=== PATIENT | male | born 1980 | race Caucasian/White ===

== ENCOUNTER 2016-10-20 10:05 | Emergency (ER) | payer SELFPAY ==
[~2016-10-20] VITALS: Ht 165.1 cm; Wt 81.6 kg
[2016-10-20 10:20] VITALS: BP 137/82
[2016-10-20] MEDS ORDERED: FAMOTIDINE 20 MG/2 ML VIAL IVP ONE (10:25)
[2016-10-20] MEDS ORDERED: NACL 0.9% 1,000 ML IV SCH (10:25)
[2016-10-20] MEDS ORDERED: KETOROLAC 30 MG/ML VIAL IVP ONE (10:25)
--- NOTE | 2016-10-20 10:36 | NUR ---
PATIENT PRESENTS TO ED WITH C/O MID CP SINCE AT 11PM 7/10 PRESSURE, NON RADIATING, denies any medical hx;SKIN IS PINK/WARM/DRY; AAOX4 WITH EVEN AND STEADY GAIT; LUNGS CLEAR BL; HR EVEN AND REGULAR; PT DENIES ANY FEVER,COUGH AT THIS TIME; PATIENT STATES PAIN OF /10 AT THIS TIME;PATIENT POSITIONED FOR COMFORT; HOB ELEVATED; BEDRAILS UP X2; BED DOWN.all monitors in placed.
[2016-10-20 10:56] LABS: BASOPHILS # (AUTO) 0.4 K/uL (0.00-0.22); BASOPHILS % (AUTO) 3.6 % (0.0-2.0); EOSINOPHILS # (AUTO) 0.2 K/uL (0-0.4); EOSINOPHILS % (AUTO) 1.3 % (0.0-4.0); HEMOGLOBIN 16.4 g/dL (12.0-18.0); LYMPHOCYTES # (AUTO) 2.6 K/uL (2.0-11.5); LYMPHOCYTES % (AUTO) 21.5 % (20.5-51.1); MEAN CORPUSCULAR HEMOGLOBIN 30 pg (27-31); MEAN CORPUSCULAR HGB CONC 34 g/dL (33-37); MEAN CORPUSCULAR VOLUME 90 fL (80-94); MONOCYTES # (AUTO) 0.8 K/uL (0.8-1.0); MONOCYTES % (AUTO) 6.9 % (1.7-9.3); NEUTROPHILS # (AUTO) 8.1 K/uL (1.8-7.7); NEUTROPHILS % (AUTO) 66.7 % (42.2-75.2); PLATELET COUNT (AUTO) 244 K/uL (140-450); RED BLOOD CELL COUNT(AUTO) 5.47 MIL/uL (4.20-6.10); RED CELL DISTRIBUTION WIDTH 12.2 % (11.6-13.7); WHITE BLOOD COUNT (AUTO) 12.1 K/uL (4.8-10.8)
[2016-10-20 11:00] LABS: ANION GAP 13.1 (8-16); CALCIUM 8.7 mg/dL (8.5-10.1); CARBON DIOXIDE 28.1 mmol/L (21-32); CREATININE 0.8 mg/dL (0.6-1.3); POTASSIUM 4.2 mmol/L (3.5-5.1)
[2016-10-20 11:06] LABS: TOTAL BILIRUBIN 0.6 mg/dL (0.0-1.0); TOTAL PROTEIN, SERUM 8.7 g/dL (6.4-8.2)
[2016-10-20 11:17] LABS: AMYLASE 51 U/L (25-115); LIPASE 106 U/L (73-393)
[2016-10-20 11:18] LABS: APPEARANCE,URINE CLEAR (CLEAR); BILIRUBIN,URINE NEGATIVE (NEGATIVE); BLOOD, URINE TRACE-I (NEGATIVE); COLOR,URINE YELLOW (YELLOW); LEUKOCYTE ESTERASE ,URINE NEGATIVE (NEGATIVE); NITRITE, URINE NEGATIVE (NEGATIVE); PROTEIN,URINE NEGATIVE (NEGATIVE); UGLUCOSE NEGATIVE (NEGATIVE); UROBILINOGEN,URINE 0.2 EU/dL (0.2 - 1)
[2016-10-20 11:23] LABS: PARTIAL THROMBOPLASTIN TIME 31.2 secs (22-35.6); PROTHROMBIN TIME 10.1 secs (10.8-13.4)
--- NOTE | 2016-10-20 11:24 | NUR ---
PT VERBALIZES DECREASE OF PAIN FROM 7/10 TO 3/10;NO FACIAL GRIMMACING/MOANING NOTED;WILL CONTINUE TO MONITOR PT.
[2016-10-20 11:30] LABS: D-DIMER < 100 ng/ml (0-400)
[2016-10-20 11:34] LABS: RBC,URINE 0-5 (RARE) /HPF (0-5)
[2016-10-20 11:35] LABS: BACTERIA,URINE OCCASSIONAL /HPF (None Seen); MUCUS,URINE RARE /LPF (None Seen); SQUAMOUS EPITHELIAL CELL,UR None Seen /LPF (0-3 (FEW)); WBC,URINE 0-5 (RARE) /HPF (0-5)
--- NOTE | 2016-10-20 11:52 | NUR ---
Patient discharged with v/s stable. Written and verbal after care instructions given and explained. Patient alert, oriented and verbalized understanding of instructions. Ambulatory with steady gait. All questions addressed prior to discharge. ID band removed. Patient advised to follow up with PMD. Rx of NAPOROSYN given. Patient educated on indication of medication including possible reaction and side effects. Opportunity to ask questions provided and answered.
[2016-10-20 11:53] VITALS: BP 133/79
== END 2016-10-20 11:54 | disposition home or self-care (01) ==
LOC: MED 10:05
DX: M94.0 Chondrocostal junction syndrome [Tietze] (principal)
CPT/HCPCS: 36415; 71010; 80053; 81001; 82150; 82553; 83690; 83880; 84484; 85025; 85379; 85610; 85730; 93005; 96361; 96374; 96375; 99285; J1885; J3490; J7030; Q0092